=== PATIENT | male | born 1945 | race Caucasian/White ===

== ENCOUNTER → 2019-05-21 | Outpatient (CLI) | payer MEDICARE, OTHER ==
[~2019-05-21] MED LIST: ACET325T14 PO; ASCO-96 PO; ASPI81TA45 PO; BUPR150T20 PO; DIAZ5TAB4 PO; ERGO500017 PO; FINA5TAB4 PO; GEMF600T8 PO; HYDR25TA6 PO; IBUP-1902 PO; KRIL1CAP31 PO; LISI-170 PO; MELO7.5T31 PO; METF500T27 PO; NAPR220C2 PO; TAMS-11 PO; VITA100C8 PO
[2019-05-21 08:45] LABS: BASOPHILS # (AUTO) 0.05 x10^3/uL (0-0.1); BASOPHILS % (AUTO) 1 % (0-1); EOSINOPHILS # (AUTO) 0.45 x10^3/uL (0-0.4); EOSINOPHILS % (AUTO) 7 % (1-7); LYMPHOCYTES # (AUTO) 2.11 x10^3/uL (1-3.4); LYMPHOCYTES % (AUTO) 34 % (22-44); MD NO; MEAN CORPUSCULAR HEMOGLOBIN 32.3 pg (27.5-34.5); MEAN CORPUSCULAR HGB CONC 34.2 g/dL (33.2-36.2); MEAN CORPUSCULAR VOLUME 94.5 fL (81-97); MEAN PLATELET VOLUME 7.2 fL (7.4-10.4); MONOCYTES # (AUTO) 0.54 x10^3/uL (0.2-0.8); MONOCYTES % (AUTO) 9 % (2-9); NEUTROPHILS # (AUTO) 3.03 x10^3/uL (1.8-6.8); NEUTROPHILS % (AUTO) 49 % (42-75); PLATELET COUNT 342 x10^3/uL (130-400); RED BLOOD COUNT 5.23 x10^6/uL (4.38-5.82)
[2019-05-21 08:57] LABS: ALANINE AMINOTRANSFERASE 36 U/L (12-78); ALBUMIN 3.9 g/dL (3.4-5.0); ANION GAP 7 mmol/L (5-15); CALCIUM 9.6 mg/dL (8.5-10.1); CHLORIDE 104 mmol/L (98-107); CREATININE 1.05 mg/dL (0.7-1.3)
[2019-05-21 09:00] LABS: ALKALINE PHOSPHATASE 58 U/L (45-117); BILIRUBIN,TOTAL 0.4 mg/dL (0.2-1.0); TOTAL PROTEIN 8.1 g/dL (6.4-8.2)
== END | disposition home or self-care (01) ==
LOC: STAR 07:37
PROVIDERS: ATTEND Surgery
DX: Z01.812 Encounter for preprocedural laboratory examination (principal); I70.211 Atherosclerosis of native arteries of extremities with intermittent claudication, right leg; I10 Essential (primary) hypertension; M47.814 Spondylosis without myelopathy or radiculopathy, thoracic region
CPT/HCPCS: 36415; 71046; 80053; 85025; 93005

== ENCOUNTER 2019-05-27 07:39 | Inpatient (IN) | payer MEDICARE, OTHER ==
[~2019-05-27] VITALS: Ht 188 cm; Wt 83.4 kg
[~2019-05-27 07:39] MED LIST changes: -BUPR150T20 PO; +BUPR150T28 PO
[2019-05-27 10:47] VITALS: BP 110/78
[2019-05-27] MEDS ORDERED: LACTATED RINGERS 1,000 ML IV SCH (10:53)
[2019-05-27] MEDS ORDERED: PROTAMINE SULFATE 10 MG/ML, 5ML ONE (12:45)
[2019-05-27] MEDS ORDERED: THROMBIN 5,000 UNIT VIAL TP ONE (12:45)
[2019-05-27] MEDS ORDERED: HEPARIN 1,000 UNITS/ML, 10ML ONE ×2 (12:45→14:25)
[2019-05-27] MEDS ORDERED: PROPOFOL 50 ML ONE (12:52)
[2019-05-27] MEDS ORDERED: FENTANYL PF 250 MCG/5ML ONE ×2 (12:53→16:09)
[2019-05-27] MEDS ORDERED: MIDAZOLAM 1 MG/ML, 2ML ONE (12:53)
[2019-05-27] MEDS ORDERED: CEFAZOLIN 1,000 MG ONE ×2 (13:09→16:34)
[2019-05-27] MEDS ORDERED: EPHEDRINE 50 MG/ML, 1ML IVPush PRN (15:30)
[2019-05-27] MEDS ORDERED: MIDAZOLAM 1 MG/ML, 2ML IV PRN (15:30)
[2019-05-27] MEDS ORDERED: OXYcodone 5 MG/5 ML ORAL.SOL UDC PO PRN (15:30)
[2019-05-27] MEDS ORDERED: DIAZEPAM 5 MG/ML, 2ML IVPush PRN (15:30)
[2019-05-27] MEDS ORDERED: ACETAMINOPHEN 325 MG TABLET PO PRN (15:30)
[2019-05-27] MEDS ORDERED: MORPHINE SULFATE 4 MG/ML, 1ML IVPush PRN (15:30)
[2019-05-27] MEDS ORDERED: ONDANSETRON 2MG/ML, 2ML IV PRN (15:30)
[2019-05-27] MEDS ORDERED: ONDANSETRON ODT 8 MG PO PRN (15:30)
[2019-05-27] MEDS ORDERED: METOPROLOL 1 MG/ML, 5ML IV PRN (15:30)
[2019-05-27] MEDS ORDERED: DIPHENHYDRAMINE 50 MG/ML, 1ML IVPush PRN (15:30)
[2019-05-27] MEDS ORDERED: MEPERIDINE/PF 25MG/ML,1ML IVPush PRN (15:30)
[2019-05-27] MEDS ORDERED: EPHEDRINE 50 MG/ML, 1ML IM PRN (15:30)
[2019-05-27] MEDS ORDERED: PROMETHAZINE 25 MG/ML, 1ML IV PRN (15:30)
[2019-05-27] MEDS ORDERED: VISIPAQUE 270 MG/ML, 50ML BOTTLE ONE (16:16)
[2019-05-27] MEDS ORDERED: ROCURONIUM 10MG/ML,5ML ONE (16:34)
[2019-05-27] MEDS ORDERED: PROPOFOL 10 MG/ML, 20ML ONE (16:35)
[2019-05-27] MEDS ORDERED: SUCCINYLCHOLINE 20 MG/ML, 10ML ONE (16:35)
[2019-05-27] MEDS ORDERED: DEXAMETHASONE 4 MG/ML, 1ML ONE (16:35)
[2019-05-27] MEDS ORDERED: ONDANSETRON 2MG/ML, 2ML ONE (16:35)
[2019-05-27] MEDS ORDERED: ONDANSETRON 2MG/ML, 2ML IVPush PRN (17:30)
[2019-05-27] MEDS ORDERED: DIAZEPAM 5 MG TABLET PO SCH (17:30)
[2019-05-27] MEDS: LACTATED RINGERS 1,000 ML IV SCH (17:37)
[2019-05-27] MEDS ORDERED: ACETAMINOPHEN 650 MG/20.3 ML UDC ONE (17:44)
[2019-05-27] MEDS ORDERED: FENTANYL PF 100 MCG/2ML ONE (17:44)
[2019-05-27] MEDS ORDERED: OXYcodone 5 MG/5 ML ORAL.SOL UDC ONE (17:44)
[2019-05-27] MEDS: FENTANYL PF 100 MCG/2ML IV PRN ×4 (17:45→18:15)
[2019-05-27] MEDS: ACETAMINOPHEN 325 MG TABLET PO PRN (17:46)
[2019-05-27 18:35] VITALS: BP 87/57
[2019-05-27] MEDS: OXYcodone IR 5MG TABLET PO PRN ×2 (19:09→23:25)
[2019-05-27] MEDS ORDERED: ERGOCALCIFEROL 50,000 UNIT CAPSULE PO SCH (20:00)
[2019-05-27] MEDS: GEMFIBROZIL 600 MG TABLET PO SCH (21:17)
[2019-05-27] MEDS: BUPROPION SR 150 MG TABLET PO SCH (21:17)
[2019-05-27] MEDS: metFORMIN 500 MG TABLET PO SCH (21:17)
[2019-05-27] MEDS: CEFAZOLIN PMX 2GM/50ML 50 ML IVPB SCH (21:17)
[2019-05-27] MEDS: DIAZEPAM 5 MG TABLET PO PRN (21:20)
[2019-05-27 23:57] VITALS: BP 90/55
[2019-05-28] MEDS: LACTATED RINGERS 1,000 ML IV SCH ×3 (01:37→17:41)
[2019-05-28] MEDS: OXYcodone IR 5MG TABLET PO PRN ×5 (02:37→21:21)
[2019-05-28 03:23] VITALS: BP 96/60
[2019-05-28] MEDS: CEFAZOLIN PMX 2GM/50ML 50 ML IVPB SCH (05:24)
[2019-05-28 05:31] LABS: BASOPHILS # (AUTO) 0.03 x10^3/uL (0-0.1); BASOPHILS % (AUTO) 0 % (0-1); EOSINOPHILS # (AUTO) 0.15 x10^3/uL (0-0.4); EOSINOPHILS % (AUTO) 2 % (1-7); LYMPHOCYTES # (AUTO) 1.98 x10^3/uL (1-3.4); LYMPHOCYTES % (AUTO) 23 % (22-44); MD NO; MEAN CORPUSCULAR HEMOGLOBIN 31.8 pg (27.5-34.5); MEAN CORPUSCULAR HGB CONC 33.1 g/dL (33.2-36.2); MEAN CORPUSCULAR VOLUME 96.2 fL (81-97); MEAN PLATELET VOLUME 7.5 fL (7.4-10.4); MONOCYTES # (AUTO) 0.72 x10^3/uL (0.2-0.8); MONOCYTES % (AUTO) 8 % (2-9); NEUTROPHILS # (AUTO) 5.71 x10^3/uL (1.8-6.8); NEUTROPHILS % (AUTO) 67 % (42-75); PLATELET COUNT 273 x10^3/uL (130-400); RED BLOOD COUNT 4.02 x10^6/uL (4.38-5.82); RED CELL DISTRIBUTION WIDTH 14.1 % (9.4-14.8)
[2019-05-28] MEDS: DIAZEPAM 5 MG TABLET PO PRN ×2 (05:37→14:46)
[2019-05-28 05:46] LABS: ALBUMIN 3.1 g/dL (3.4-5.0); ANION GAP 4 mmol/L (5-15); CALCIUM 8.4 mg/dL (8.5-10.1); CHLORIDE 106 mmol/L (98-107); CREATININE 0.94 mg/dL (0.7-1.3)
[2019-05-28 08:28] VITALS: BP 105/64
[2019-05-28] MEDS: ENOXAPARIN 40 MG/0.4 ML SQ SCH (08:31)
[2019-05-28] MEDS: VITAMIN E 400 UNITS CAPSULE PO SCH (08:31)
[2019-05-28] MEDS: GEMFIBROZIL 600 MG TABLET PO SCH ×2 (08:32→21:22)
[2019-05-28] MEDS: CLOPIDOGREL 75 MG TABLET PO SCH (08:32)
[2019-05-28] MEDS: ASCORBIC ACID 500 MG TABLET PO SCH (08:32)
[2019-05-28] MEDS: BUPROPION SR 150 MG TABLET PO SCH ×2 (08:32→21:20)
[2019-05-28] MEDS: HYDROCHLOROTHIAZIDE 25 MG TABLET PO SCH (08:33)
[2019-05-28] MEDS: TAMSULOSIN 0.4 MG CAP.ER.24H PO SCH (08:33)
[2019-05-28] MEDS: ASPIRIN 81 MG TABLET EC PO SCH (08:33)
[2019-05-28] MEDS: LISINOPRIL 20 MG TABLET PO SCH (08:33)
[2019-05-28] MEDS: FINASTERIDE 5 MG TABLET PO SCH (08:36)
[2019-05-28 13:40] VITALS: BP 96/56
[2019-05-28 20:25] VITALS: BP 106/66
[2019-05-28] MEDS: metFORMIN 500 MG TABLET PO SCH (21:21)
[2019-05-29 01:30] VITALS: BP 123/72
[2019-05-29] MEDS: LACTATED RINGERS 1,000 ML IV SCH ×4 (01:37→23:27)
[2019-05-29] MEDS: OXYcodone IR 5MG TABLET PO PRN ×4 (03:19→20:46)
[2019-05-29] MEDS: ACETAMINOPHEN 325 MG TABLET PO PRN (03:19)
[2019-05-29] MEDS: DIAZEPAM 5 MG TABLET PO PRN (05:58)
[2019-05-29 07:20] VITALS: BP 115/71
[2019-05-29] MEDS: BUPROPION SR 150 MG TABLET PO SCH ×2 (08:05→20:14)
[2019-05-29] MEDS: ENOXAPARIN 40 MG/0.4 ML SQ SCH (08:05)
[2019-05-29] MEDS: CLOPIDOGREL 75 MG TABLET PO SCH (08:06)
[2019-05-29] MEDS: ASPIRIN 81 MG TABLET EC PO SCH (08:06)
[2019-05-29] MEDS: TAMSULOSIN 0.4 MG CAP.ER.24H PO SCH (08:06)
[2019-05-29] MEDS: ASCORBIC ACID 500 MG TABLET PO SCH (08:06)
[2019-05-29] MEDS: LISINOPRIL 20 MG TABLET PO SCH (08:06)
[2019-05-29] MEDS: GEMFIBROZIL 600 MG TABLET PO SCH ×2 (08:06→20:14)
[2019-05-29] MEDS: VITAMIN E 400 UNITS CAPSULE PO SCH (08:06)
[2019-05-29] MEDS: FINASTERIDE 5 MG TABLET PO SCH (08:07)
[2019-05-29] MEDS: HYDROCHLOROTHIAZIDE 25 MG TABLET PO SCH (08:07)
[2019-05-29 13:09] VITALS: BP 123/74
[2019-05-29] MEDS ORDERED: BISACODYL 5 MG EC TABLET PO PRN (18:30)
[2019-05-29] MEDS ORDERED: BISACODYL 10 MG SUPP PR PRN (18:30)
[2019-05-29 19:25] VITALS: BP 91/62
[2019-05-29] MEDS: metFORMIN 500 MG TABLET PO SCH (20:14)
[2019-05-30 01:08] VITALS: BP 108/67
[2019-05-30] MEDS: OXYcodone IR 5MG TABLET PO PRN ×6 (02:26→20:56)
[2019-05-30] MEDS: ACETAMINOPHEN 325 MG TABLET PO PRN (02:27)
[2019-05-30 06:56] VITALS: BP 137/75
[2019-05-30] MEDS: ENOXAPARIN 40 MG/0.4 ML SQ SCH (08:00)
[2019-05-30] MEDS: VITAMIN E 400 UNITS CAPSULE PO SCH (09:00)
[2019-05-30] MEDS: TAMSULOSIN 0.4 MG CAP.ER.24H PO SCH (09:26)
[2019-05-30] MEDS: GEMFIBROZIL 600 MG TABLET PO SCH ×2 (09:26→20:50)
[2019-05-30] MEDS: ASCORBIC ACID 500 MG TABLET PO SCH (09:26)
[2019-05-30] MEDS: ASPIRIN 81 MG TABLET EC PO SCH (09:26)
[2019-05-30] MEDS: CLOPIDOGREL 75 MG TABLET PO SCH (09:26)
[2019-05-30] MEDS: HYDROCHLOROTHIAZIDE 25 MG TABLET PO SCH (09:26)
[2019-05-30] MEDS: BUPROPION SR 150 MG TABLET PO SCH ×2 (09:27→20:50)
[2019-05-30] MEDS: LISINOPRIL 20 MG TABLET PO SCH (09:28)
[2019-05-30] MEDS: FINASTERIDE 5 MG TABLET PO SCH (09:32)
[2019-05-30] MEDS: LACTATED RINGERS 1,000 ML IV SCH ×2 (09:37→17:37)
[2019-05-30 12:30] VITALS: BP 96/61
[2019-05-30] MEDS: DIAZEPAM 5 MG TABLET PO PRN (18:15)
[2019-05-30 19:37] VITALS: BP 97/67
[2019-05-30] MEDS: metFORMIN 500 MG TABLET PO SCH (20:50)
[2019-05-31] MEDS: OXYcodone IR 5MG TABLET PO PRN ×6 (00:05→22:51)
[2019-05-31] MEDS: ACETAMINOPHEN 325 MG TABLET PO PRN ×2 (00:05→04:17)
[2019-05-31] MEDS: LACTATED RINGERS 1,000 ML IV SCH ×3 (01:00→17:37)
[2019-05-31 01:09] VITALS: BP 94/59
[2019-05-31 07:38] VITALS: BP 112/72
[2019-05-31] MEDS: ENOXAPARIN 40 MG/0.4 ML SQ SCH (08:40)
[2019-05-31] MEDS: ASPIRIN 81 MG TABLET EC PO SCH (08:40)
[2019-05-31] MEDS: GEMFIBROZIL 600 MG TABLET PO SCH ×2 (08:40→22:51)
[2019-05-31] MEDS: VITAMIN E 400 UNITS CAPSULE PO SCH (08:40)
[2019-05-31] MEDS: LISINOPRIL 20 MG TABLET PO SCH (08:41)
[2019-05-31] MEDS: BUPROPION SR 150 MG TABLET PO SCH ×2 (08:41→22:51)
[2019-05-31] MEDS: HYDROCHLOROTHIAZIDE 25 MG TABLET PO SCH (08:41)
[2019-05-31] MEDS: ASCORBIC ACID 500 MG TABLET PO SCH (08:41)
[2019-05-31] MEDS: FINASTERIDE 5 MG TABLET PO SCH (08:42)
[2019-05-31] MEDS: TAMSULOSIN 0.4 MG CAP.ER.24H PO SCH (08:42)
[2019-05-31] MEDS: CLOPIDOGREL 75 MG TABLET PO SCH (08:44)
[2019-05-31 13:54] VITALS: BP 109/70
[2019-05-31] MEDS: DIAZEPAM 5 MG TABLET PO PRN (16:22)
[2019-05-31] MEDS ORDERED: CLOP75TA PO (18:19)
[2019-05-31 19:14] VITALS: BP 114/75
[2019-05-31] MEDS: metFORMIN 500 MG TABLET PO SCH (22:51)
[2019-06-01 01:15] VITALS: BP 97/51
[2019-06-01] MEDS: LACTATED RINGERS 1,000 ML IV SCH ×2 (01:37→09:37)
[2019-06-01] MEDS: OXYcodone IR 5MG TABLET PO PRN ×2 (06:01→12:11)
[2019-06-01] MEDS: DIAZEPAM 5 MG TABLET PO PRN (06:01)
[2019-06-01 06:49] VITALS: BP 106/65
[2019-06-01] MEDS: ENOXAPARIN 40 MG/0.4 ML SQ SCH (08:00)
[2019-06-01] MEDS: FINASTERIDE 5 MG TABLET PO SCH (09:00)
[2019-06-01] MEDS: VITAMIN E 400 UNITS CAPSULE PO SCH (09:00)
[2019-06-01] MEDS: CLOPIDOGREL 75 MG TABLET PO SCH (09:39)
[2019-06-01] MEDS: GEMFIBROZIL 600 MG TABLET PO SCH (09:40)
[2019-06-01] MEDS: LISINOPRIL 20 MG TABLET PO SCH (09:40)
[2019-06-01] MEDS: BUPROPION SR 150 MG TABLET PO SCH (09:40)
[2019-06-01] MEDS: ASCORBIC ACID 500 MG TABLET PO SCH (09:40)
[2019-06-01] MEDS: ASPIRIN 81 MG TABLET EC PO SCH (09:40)
[2019-06-01] MEDS: TAMSULOSIN 0.4 MG CAP.ER.24H PO SCH (09:41)
[2019-06-01] MEDS: HYDROCHLOROTHIAZIDE 25 MG TABLET PO SCH (09:41)
[2019-06-01] MEDS ORDERED: OXYC5TAB2 PO (11:34)
[2019-06-01 12:07] VITALS: BP 133/76
[2019-11-20] MEDS ORDERED: HYDR-3240 PO (11:40)
[2019-11-23] MEDS ORDERED: CLOP75TA PO (14:44)
== END 2019-06-01 12:48 | disposition home health service (06) | DRG 253 ==
LOC: ORIP 10:19 → 4NE 18:40 → DCLOUNGE 06-01 12:35
PROVIDERS: ADMIT Surgery; ATTEND Surgery
PROC: 041K09L Bypass Right Femoral Artery to Popliteal Artery with Autologous Venous Tissue, Open Approach (ICD-10-PCS; 2019-05-27)
PROC: 06BQ0ZZ Excision of Left Saphenous Vein, Open Approach (ICD-10-PCS; 2019-05-27)
PROC: 06BP0ZZ Excision of Right Saphenous Vein, Open Approach (ICD-10-PCS; 2019-05-27)
PROC: 04UK07Z Supplement Right Femoral Artery with Autologous Tissue Substitute, Open Approach (ICD-10-PCS; 2019-05-27)
PROC: 04CK0ZZ Extirpation of Matter from Right Femoral Artery, Open Approach (ICD-10-PCS; principal; 2019-05-27 12:30)
DX: I70.221 Atherosclerosis of native arteries of extremities with rest pain, right leg (principal); R71.0 Precipitous drop in hematocrit; I70.201 Unspecified atherosclerosis of native arteries of extremities, right leg; R33.9 Retention of urine, unspecified; I10 Essential (primary) hypertension; E10.9 Type 1 diabetes mellitus without complications; S70.11XA Contusion of right thigh, initial encounter
CPT/HCPCS: 36415; 75710; 80048; 82040; 82962; 85025; 86850; 86900; G0378; J0690; J1100; J1644; J1650; J2250; J2405; J2704; J2720; J3010; Q9966; J0330; J7120